=== PATIENT | male | born 1995 | race Caucasian/White ===

== ENCOUNTER 2022-02-24 07:34 | Emergency (ER) | payer BC ==
[~2022-02-24] VITALS: Ht 182.9 cm; Wt 83.9 kg
[2022-02-24] MEDS ORDERED: FENTANYL CITRATE 100 MCG/2 ML AMPUL ONE (07:37)
[2022-02-24] MEDS ORDERED: FENTANYL CITRATE 100 MCG/2 ML AMPUL IV ONE (07:45)
[2022-02-24] MEDS ORDERED: PROPOFOL 200 MG/20 ML BOTTLE IV ONE (07:45)
[2022-02-24] MEDS ORDERED: PROPOFOL 200 MG/20 ML BOTTLE ONE (07:46)
--- NOTE | 2022-02-24 08:05 | NUR ---
Shoulderm sling applied to Rt shoulder per Md order. Xray at the bedside.
[2022-02-24] MEDS ORDERED: IBUP-1955 PO (08:13)
--- NOTE | 2022-02-24 08:14 | NUR ---
Pt is awake a/o x4, verbally responsive, able to move x4 ext. Respirations even and non labored.
--- NOTE | 2022-02-24 08:25 | NUR ---
Pt sitting up in bed, denies dizziness, family at the bedside.
[2022-02-24 08:46] VITALS: BP 144/79
--- NOTE | 2022-02-24 08:46 | NUR ---
Patient discharged to home in stable condition. Written and verbal after care instructions given. Patient verbalizes understanding of instructions. Stressed follow up or return to ER for worsening s/s.
== END 2022-02-24 08:46 | disposition home or self-care (01) ==
LOC: ER 07:34
DX: M24.411 Recurrent dislocation, right shoulder (principal)
CPT/HCPCS: 99285; 23650; 73030; 99152; J3010; J7040; A4663; G0500; J3490